=== PATIENT | male | born 1950 | race Two or more races ===

== ENCOUNTER → 2016-08-01 | Outpatient (CLI) | payer MEDICARE, MEDICAID ==
[~2016-08-01] MED LIST: AFINITOR5 MG PO; CEFUROXIME500 MG PO; CENTRUM SILVER1 TAB PO; CLINDAMYCIN HC300 MG PO; COLACE100 MG PO; CPAP INH; DILAUDID 2MG(HYD2 MG PO; FEOSOL325 MG PO; IBUPROFEN; LASIX20 MG PO; LEVAQUIN; LOTENSIN20 MG PO; MIRALAX17 GM PO; MULTI VITAMIN1 EACH PO; NILSTAT60 ML PO; PERCOCET 5-3251 EACH PO; TYLENOL EXTRA500 MG PO; VALIUM5 MG PO; ZOCOR40 MG PO; ZYRTEC10 M1 PO; ZYVOX600 MG PO
== END | disposition disaster alternative care site (69) ==
LOC: GRAD 09:25
DX: Z08 Encounter for follow-up examination after completed treatment for malignant neoplasm (principal); Z85.528 Personal history of other malignant neoplasm of kidney; E78.5 Hyperlipidemia, unspecified; Z90.5 Acquired absence of kidney
CPT/HCPCS: Q9967

== ENCOUNTER → 2017-01-29 | Outpatient (CLI) | payer MEDICARE, MEDICAID | END | disposition disaster alternative care site (69) | LOC: GRAD 14:21 | DX: Z08 Encounter for follow-up examination after completed treatment for malignant neoplasm (principal); E78.5 Hyperlipidemia, unspecified; R91.1 Solitary pulmonary nodule; J70.2 Acute drug-induced interstitial lung disorders; Z85.49 Personal history of malignant neoplasm of other male genital organs; Z90.5 Acquired absence of kidney | CPT/HCPCS: Q9967 ==